=== PATIENT | male | born 1995 | race African-American/Black ===

== ENCOUNTER 2019-11-08 00:26 | Emergency (ER) | payer OTHER ==
[~2019-11-08] VITALS: Ht 177.8 cm; Wt 72.6 kg
[~2019-11-08 00:26] MED LIST: IBUPROFEN 600600 M1 PO; NOHOMEMEDICATIONS
[2019-11-08 00:49] LABS: ABSOLUTE NEUTROPHILS 9.2 thou/uL (1.4-8.2); BASOPHILS 0.4 % (0.0-2.0); EOSINOPHILS 0.3 % (0.0-3.0); HEMATOCRIT 45.1 % (42.0-52.0); HEMOGLOBIN 15.1 gm/dL (14.0-18.0); LYMPHOCYTES 16.3 % (24.0-44.0); MCH 30.5 pg (26.0-34.0); MCHC 33.5 g/dL (28.0-37.0); MCV 91.2 fL (80.0-100.0); MONOCYTES 6.4 % (1.0-8.0); PLATELET COUNT 191 thou/uL (150-400); POLYS 76.6 % (36.0-66.0); RBC 4.94 mil/uL (4.50-6.00); RDW 13.2 % (10.5-14.5)
[2019-11-08 00:55] LABS: ANION GAP 3 mmol/L (7-16); BUN 13 mg/dL (7-18); CALCIUM 8.7 mg/dL (8.5-10.1); CHLORIDE 101 mmol/L (98-107); CO2 33 mmol/L (21-32); CREATININE 1.2 mg/dL (0.7-1.3); GLUCOSE 96 mg/dL (74-106); POTASSIUM 3.8 mmol/L (3.5-5.1); SODIUM 137 mmol/L (136-145)
[2019-11-08 01:01] LABS: ALBUMIN 4.4 g/dL (3.4-5.0); DIRECT BILIRUBIN < 0.1 mg/dL (<0.1-0.2); SALICYLATE < 2.8 mg/dL (2.8-20.0); SGOT 24 U/L (15-37); SGPT 30 U/L (30-65); TOTAL BILIRUBIN 0.7 mg/dL (0.2-1.0); TOTAL PROTEIN 7.8 g/dL (6.4-8.2)
[2019-11-08 01:15] LABS: LARGE PLATELETS OCCASIONAL
[2019-11-08 02:03] VITALS: BP 141/96
--- NOTE | 2019-11-08 11:04 | EKG ---
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
== END 2019-11-08 02:05 | disposition home or self-care (01) ==
LOC: ER 00:26
PROVIDERS: Emergency Medicine
DX: T42.4X1A Poisoning by benzodiazepines, accidental (unintentional), initial encounter (principal); T40.2X1A Poisoning by other opioids, accidental (unintentional), initial encounter; F17.210 Nicotine dependence, cigarettes, uncomplicated; Z79.1 Long term (current) use of non-steroidal anti-inflammatories (NSAID); Y92.89 Other specified places as the place of occurrence of the external cause